=== PATIENT | female | born 1990 | race Caucasian/White ===

== ENCOUNTER 2021-04-29 10:10 | Emergency (ER) | payer OTHER ==
[~2021-04-29] VITALS: Ht 162.6 cm; Wt 77.1 kg
[2021-04-29] MEDS ORDERED: AMOXICILLIN500 MG PO (10:44)
== END 2021-04-29 15:04 | disposition home or self-care (01) ==
LOC: ED 10:10
DX: O99.353 Diseases of the nervous system complicating pregnancy, third trimester (principal); G43.809 Other migraine, not intractable, without status migrainosus; R29.810 Facial weakness; Z3A.37 37 weeks gestation of pregnancy
CPT/HCPCS: 80048; 85025; 96374; 96375; 99284-25; J0780; J1100; J1200; J2765; J3475; J7030

== ENCOUNTER 2021-05-09 00:04 | Inpatient (IN) | payer OTHER ==
[~2021-05-09 00:04] MED LIST: AMOXICILLIN500 MG PO
--- NOTE | 2021-05-09 00:30 | NUR ---
pt was swabbed for covid 19
--- NOTE | 2021-05-09 12:08 | PR ---
[facility] [address] [place], [place] [address] Signed Progress Notes IP Datetime Report Generated by CPRosie: 05/09/2021 12:08 PROGRESS NOTES: [id number] Impression: Normal Progression of Labor; Reassuring Heart Rate Procedures: Artificial ROM; Intrauterine Pressure Catheter Plan: Continue Present Management Other Plans: Discussed meconium and amnio infusion if indicated VITAL SIGNS: [id number] Vital Signs: Reviewed; Within Normal Limits VS Notable Details: Normal glucose values EXAM: [id number] Dilatation: 2.0 Effacement: 80 Station: -1 Contractions: None MEMBRANES: [id number] Pooling: Negative Comments: Pt seen and examined. Doing well. Comfortable w/ epidural. Noted occasional variable decelerations and ripe cervix. AROM performed after verbal consent and head noted to be well applied for moderate amount meconium stained fluid. IUPC placed w/out difficulty FETUS A: [id number] FHR Baseline: 130 Variability: Moderate 6-25bpm Accelerations: 15X15 Decelerations: None FHR Category: Category I Presentation: Vertex Comments on Fetus A: No evidence of metabolic acidosis FETUS B: [id number] Signing Physician: Shania Freire DO Copies: ~ *Electronically Signed* 05/09/21 1209 SHANIA FREIRE DO PATIENT NAME: AMOR HEDRICK PROGRESS NOTE DATE OF : 92 PHYSICIAN: SHANIA FREIRE DO RPT #: [id number] REPORT IS CONFIDENTIAL AND NOT TO BE RELEASED WITHOUT AUTHORIZATION
--- NOTE | 2021-05-09 12:18 | PR ---
[facility] [address] [place], [place] [address] Signed Progress Notes IP Datetime Report Generated by CPN: 05/09/2021 12:18 PROGRESS NOTES: [id number] Impression: Normal Progression of Labor; Reassuring Heart Rate Procedures: Scalp Electrode Plan: Continue Present Management Other Plans: Discussed meconium and amnio infusion if indicated VITAL SIGNS: [id number] Vital Signs: Reviewed; Within Normal Limits VS Notable Details: Normal glucose values EXAM: [id number] Dilatation: 2.0 Effacement: 80 Station: -1 Contractions: None MEMBRANES: [id number] Pooling: Negative Comments: Deep variable noted and resolved w/ position changes. Now moderate variability and reassuring FHT observed. FSE placed w/out difficulty. Discussed indication for amnioinfusion if needed. FETUS A: [id number] FHR Baseline: 130 Variability: Moderate 6-25bpm Accelerations: 15X15 Decelerations: None FHR Category: Category I Presentation: Vertex Comments on Fetus A: No evidence of metabolic acidosis FETUS B: [id number] Signing Physician: Shania Freire DO Copies: ~ *Electronically Signed* 05/09/21 1218 SHANIA FREIRE DO PATIENT NAME: AMOR HEDRICK PROGRESS NOTE DATE OF : 92 PHYSICIAN: SHANIA FREIRE DO RPT #: [id number] REPORT IS CONFIDENTIAL AND NOT TO BE RELEASED WITHOUT AUTHORIZATION
--- NOTE | 2021-05-09 14:33 | PR ---
[facility] [address] [facility] [place], [place] [address] Signed Progress Notes IP Datetime Report Generated by CPN: 05/09/2021 14:33 PROGRESS NOTES: [id number] Impression: Normal Progression of Labor Procedures: Sterile Vag Exam Plan: Continue Present Management Other Plans: Discussed meconium and amnio infusion if indicated VITAL SIGNS: [id number] Vital Signs: Reviewed; Within Normal Limits VS Notable Details: Normal glucose values EXAM: [id number] Dilatation: 2.0 Effacement: 80 Station: -1 Contractions: None MEMBRANES: [id number] Pooling: Negative Comments: Pt seen and examined. Doing well. Comfortable w/ contractions. CTXs adequate but slow cervical change. Discussed early labor and indications for pitocin if needed. Pt understands and agrees. Last glucose 106 FETUS A: [id number] FHR Baseline: 130 Variability: Moderate 6-25bpm Accelerations: 15X15 Decelerations: None FHR Category: Category I Presentation: Vertex Comments on Fetus A: No evidence of metabolic acidosis FETUS B: [id number] Signing Physician: Shania Freire DO Copies: ~ *Electronically Signed* 05/09/21 6507 SHANIA FREIRE DO PATIENT NAME: AMOR HEDRICK PROGRESS NOTE DATE OF : 92 PHYSICIAN: SHANIA FREIRE DO RPT #: [id number] REPORT IS CONFIDENTIAL AND NOT TO BE RELEASED WITHOUT AUTHORIZATION
--- NOTE | 2021-05-09 18:04 | PR ---
[facility] [address] [place], [place] [address] Signed Progress Notes IP Datetime Report Generated by CPN: 05/09/2021 18:04 PROGRESS NOTES: [id number] Impression: Reassuring Heart Rate Other Impressions: Slow progession of labor Procedures: Sterile Vag Exam Plan: Continue Present Management Other Plans: Continue maternal repositioning; Consider pitocin augmentation VITAL SIGNS: [id number] Vital Signs: Reviewed; Within Normal Limits VS Notable Details: Normal glucose values EXAM: L7871619 Dilatation: 4.0 Effacement: 85 Station: -1 Contractions: None MEMBRANES: [id number] Pooling: Negative Comments: Pt seen and examined. Doing well. Feeling discomfort w/ contractions. ROP position and caput noted on exam. Discussed slow progression of labor despite contraction pattern. Discussed options to help baby rotate to OA position. Reviewed adequate pelvis and EFW. Discussed possibility of pitocin augmentation. All questions answered FETUS A: [id number] FHR Baseline: 130 Variability: Moderate 6-25bpm Accelerations: 15X15 Decelerations: None FHR Category: Category I Presentation: Vertex Comments on Fetus A: No evidence of metabolic acidosis FETUS B: [id number] Signing Physician: Shania Freire DO Copies: ~ *Electronically Signed* 05/09/21 1802 SHANIA FREIRE DO PATIENT NAME: AMOR HEDRICK PROGRESS NOTE DATE OF : 92 PHYSICIAN: SHANIA FREIRE DO RPT #: [id number] REPORT IS CONFIDENTIAL AND NOT TO BE RELEASED WITHOUT AUTHORIZATION
--- NOTE | 2021-05-10 00:06 | PR ---
[facility] [address] [place], [place] [address] Signed Progress Notes IP Datetime Report Generated by ANGELO: 05/10/2021 00:05 PROGRESS NOTES: [id number] Impression: Normal Progression of Labor; Reassuring Heart Rate Other Impressions: Slow progession of labor Procedures: Sterile Vag Exam Plan: Continue Present Management; Anticipate Vaginal Delivery Other Plans: Continue maternal repositioning; Consider pitocin augmentation Informed Consent Obtain: Vaginal Delivery VITAL SIGNS: [id number] Vital Signs: Reviewed; Within Normal Limits VS Notable Details: Normal glucose values EXAM: [id number] Dilatation: 10.0 Effacement: 100 Station: 0 Contractions: None MEMBRANES: [id number] Pooling: Negative Comments: Pt seen and examined. Doing well. Comfortable w/ contractions w/ epidural. Complete +2 station. Reviewed adequate pelvis, EFW, and anticiapted course of 2nd stage of labor. All questions answered. FETUS A: [id number] FHR Baseline: 130 Variability: Moderate 6-25bpm Accelerations: 15X15 Decelerations: None FHR Category: Category I Presentation: Vertex Comments on Fetus A: No evidence of metabolic acidosis FETUS B: [id number] Signing Physician: Shania Freire DO Copies: ~ *Electronically Signed* 05/10/21 SHANIA ALEXANDER DO PATIENT NAME: AMOR HEDRICK PROGRESS NOTE DATE OF : 92 PHYSICIAN: SHANIA FREIRE DO RPT #: [id number] REPORT IS CONFIDENTIAL AND NOT TO BE RELEASED WITHOUT AUTHORIZATION
--- NOTE | 2021-05-10 02:13 | NUR ---
05/10/21 0212 Marilou Patrick 0202- PT ARRIVES TO [facility] ROOM #105 ALERT AND ORIENTED. PT REPORTS NO PAIN OR NAUSEA. RESP EVEN AND UNLABORED. OXYGEN SAT HIGH 90'S ON RA. PT'S 20G IV INFUSING WITH LR AND PITOCIN WNL TO THE RIGHT HAND. PT SAT UP SLIGHTLY IN BED. PT REPORTS NO DIZZINESS OR NAUSEA. 0212- PT SITTING UP A LITTLE MORE IN BED. PT REPORTS NO DIZZINESS OR NAUSEA WITH THIS. BABY TO CHEST. SIGNIFICANT OTHER AT THE BEDSIDE.
--- NOTE | 2021-05-10 08:11 | OR ---
[facility] [address] [facility] [place], [place] [address] Signed DATE OF OPERATION: 05/10/2021 SURGEON: Shania Freire DO PREOPERATIVE DIAGNOSES: 1. Intrauterine at 39 weeks' gestation. 2. Gestational diabetes mellitus, diet controlled. 3. Elton palsy. 4. Non-reassuring heart tracing. 5. Failed vacuum extraction. 6. Episiotomy POSTOPERATIVE DIAGNOSES: 1. Intrauterine at 39 weeks' gestation. 2. Gestational diabetes mellitus, diet controlled. 3. Elton palsy. 4. Non-reassuring heart tracing. 5. Failed vacuum extraction. 6. Episiotomy PROCEDURES PERFORMED: 1. Primary low transverse delivery following failed vacuum extraction 2. Repair of episiotomy. ESTIMATED BLOOD LOSS: 600 mL. VIDEOTAPE RECORDING ENGINEER: Hilda Linares MD COMPLICATIONS: None. INDICATIONS: Ms. Hedrick is a pleasant 30-year-old G1, P0, with intrauterine at 39 weeks' gestation. complicated by gestational diabetes that was well controlled with diet. Approximately one week ago, she developed Elton palsy and was started on oral steroids at which time, her diabetes became more difficult to control and insulin was started per [facility] recommendation. Diabetes was again well controlled with diet following completion of course of steroids. The patient was admitted for medical induction of Electronically Signed By: SHANIA FREIRE DO 05/10/21 0811 PATIENT NAME: AMOR HEDRICK OPERATIVE REPORT DATE OF : 92 REPORT #: [id number] PHYSICIAN: SHANIA FREIRE DO PCP: SHANIA FREIRE DO REPORT IS CONFIDENTIAL AND NOT TO BE RELEASED WITHOUT AUTHORIZATION [facility] [address] [place], [place] [address] Signed labor. She received cytotec for induction of labor and AROM was performed when cervix was ripe. Meconium stained fluid noted. She received a labor epidural and FHT was reassuring. The patient progressed to complete and pushed well with contractions. Sudden onsent bradycardia was noted and was nonresponsive to intrauterine resuscitation. Decision was made to proceed with vacuum extraction. Please see OB documentation regarding attempted operative vacuum delivery. After 3 pop-off's, decision was made to proceed with primary low transverse delivery. Risks, benefits, and alternatives were discussed in detail with the patient. The patient understands and wished to proceed with procedure. Pt was given a dose of terbutaline subq. TECHNIQUE: The patient was taken to the operating room where a time-out was performed to confirm correct patient and correct procedure. Epidural anesthesia was bolused and found to be adequate. A Porter catheter was reinserted. The patient received Ancef 2g IV as well as Azithromycin 500 mg IV. The patient was prepped and draped with a bump on the right hip. A Pfannenstiel skin incision was made through the skin down to the fascia. Fascia was nicked in the midline. The fascial incision was extended bilaterally using curved Orosco scissors. The fascia was grasped with Armen's, elevated, and the underlying rectus muscles divided sharply and bluntly. Rectus was divided in the midline and the peritoneum was entered bluntly. The peritoneal incision was extended bilaterally using blunt dissection. Gibran self-retractor was placed and hysterotomy was then performed using a surgical scalpel. Meconium-stained fluid was noted. Hysterotomy was extended bilaterally with blunt dissection. The surgeon's hand was then placed in the uterine cavity and the head was gently elevated into the maternal abdomen and delivered with the assistance of fundal pressure. No nuchal cord was noted. The baby was delivered in NATALIO position. The was vigorous and cried at delivery. Cord was doubly clamped and cut and the handed to the awaiting pediatric team for further care. Cord gases were obtained. Cord blood was obtained for routine analysis. The placenta was manually expressed intact with a centrally inserted 3-vessel cord. The uterine cavity was cleared of any remaining products of conception or clot. Pitocin was administered per protocol. An extension of the hysterotomy was noted on the left side of the hysterotomy towards the cervix. The apex of this was then secured with 0 Monocryl and hysterotomy extension was repaired in a running locked manner. Hysterotomy was then repaired using 0 Monocryl in 2 layers, the first being a running locked layer and the second being an imbricating layer in a vertical manner. Excellent hemostasis was appreciated. The patient did receive Pitocin immediately after delivery per protocol. Normal tubes and ovaries were identified. The pelvis was irrigated and a small amount of oozing along the peritoneal edge was made Electronically Signed By: SHANIA FREIRE DO 05/10/21 0811 PATIENT NAME: AMOR HEDRICK OPERATIVE REPORT DATE OF : 92 REPORT #: [id number] PHYSICIAN: SHANIA FREIRE DO PCP: SHANIA FREIRE DO REPORT IS CONFIDENTIAL AND NOT TO BE RELEASED WITHOUT AUTHORIZATION [address] [address] Signed hemostatic with Bovie electrocautery. Acel sheet was applied to the lower uterine segment after the Gibran self-retractor was removed. The peritoneum was reapproximated using 2-0 Vicryl in a running nonlocked manner. Rectus muscle was made hemostatic with judicious use of Bovie electrocautery and was irrigated. The rectus was then plicated in the midline using interrupted sutures of 0 Vicryl. The fascia was then reapproximated using 0 Vicryl in a running nonlocked manner. Subcu was made hemostatic with Bovie electrocautery and was irrigated and made hemostatic. Subcu was then reapproximated using 3-0 Vicryl in a running nonlocked manner. Skin was then reapproximated using surgical deondre. The uterus was Crede'd for scant amount of blood. Attention was then turned to episiotomy that was performed at the time of vacuum extraction. This was repaired in the standard fashion using 3-0 chromic in a running suture. Excellent cosmesis and hemostasis was appreciated. The patient then received a TAP block per Anesthesia in the operating room and was taken to PACU in good and stable condition with her . Sponge, needle, and instrument count was correct as anticipated, but due to the emergent nature of the procedure, preoperative count was unable to be performed. An x-ray was performed at the end of the procedure in the OR demonstrating no retained instrumentation. Dr. Linares was present and participated in all portions of the procedure. Shania Freire DO JDW/MODL /[id number] Copies: ~ Electronically Signed By: SHANIA FREIRE DO 05/10/21 0811 PATIENT NAME: AMOR HEDRICK OPERATIVE REPORT DATE OF : [birth year] REPORT #: [id number] PHYSICIAN: SHANIA FREIRE DO PCP: SHANIA FREIRE DO REPORT IS CONFIDENTIAL AND NOT TO BE RELEASED WITHOUT AUTHORIZATION
--- NOTE | 2021-05-11 11:28 | PR ---
[facility] [address] [place], [place] [address] Signed PP Progress Notes Datetime Report Generated by CPN: 05/11/2021 11:28 SUBJECTIVE: [id number] Pain: Within Normal Limits Nausea/Vomiting: Denies Flatus: Yes Bowel Movement: No Vital Signs: [id number] Vital Signs: Reviewed; Within Normal Limits Cardiovascular: Normal Respiratory: Normal Abdomen/Uterus: Normal Lochia: Normal Vulva/Perineum: Not Done Breasts: Not Done CVA Tenderness: Normal Extremities: Normal Incision: Normal Progress: Normal Exam Comments: Incision well healing w/ deondre in place. Fundus firm U-2 nontender IMPRESSION/PLAN/PROCEDURES: [id number] Impression: Normal Progression Other Impression: Spinal ROME Plan: Remove [place]; Discharge Progress Notes: Pt seen and examined. Doing well. Ambulating, voiding, and tolerating full diet. Pain and lochia minimal. well. No fevers, chills, or other concerts. Desires d/c home today. Reviewed d/c instruction in detail. all questions answered. Signing Physician: Shania Freire DO Copies: ~ *Electronically Signed* 05/11/21 1128 SHANIA FREIRE DO PATIENT NAME: AMOR HEDRICK PROGRESS NOTE DATE OF : 92 PHYSICIAN: SHANIA FREIRE #: [id number] REPORT IS CONFIDENTIAL AND NOT TO BE RELEASED WITHOUT AUTHORIZATION
== END 2021-05-11 12:04 | disposition home or self-care (01) | DRG 787 ==
LOC: FBC 00:04
PROVIDERS: ADMIT Obstetrics & Gynecology; ATTEND Obstetrics & Gynecology
PROC: 10D00Z1 Extraction of Products of Conception, Low, Open Approach (ICD-10-PCS; principal; 2021-05-10 00:33)
DX: O24.420 Gestational diabetes mellitus in childbirth, diet controlled (principal); O99.354 Diseases of the nervous system complicating childbirth; Z3A.39 39 weeks gestation of pregnancy; Z37.0 Single live birth; O76 Abnormality in fetal heart rate and rhythm complicating labor and delivery; G51.0 Bell's palsy; O66.5 Attempted application of vacuum extractor and forceps
CPT/HCPCS: 01961; 64488; 74018; 76942; 82803; 85027; A9270; J0456; J0690; J1100; J1650; J1885; J2001; J2405; J2590; J2795; J3010; J3105; J7121; U0003

== ENCOUNTER 2022-12-11 10:13 | Inpatient (IN) | payer OTHER ==
[~2022-12-11] VITALS: Ht 162.6 cm; Wt 75.8 kg
--- OUTSIDE RECORDS SUMMARY | ~2022-12-11 | XMS | Continuity of Care Document ---
Demographics + + + | Address | [address] | | | [place] [address] | + + + | Preferred Language | Unknown | + + + | Marital Status | | + + + | Taoist Affiliation | Unknown | + + + | Race | White | + + + | Ethnic Group | Unknown | + + + Author + + + | Author | [facility] | + + + | Organization | [facility] | + + + | Address | [address] | | | [place] [address] | + + + | Phone | | + + + Care Team Providers + + + + | Care Shop Tailor Apprentice Name | Role | Phone | + + + + Unavailable | Unavailable | + + + + Allergies and Intolerances + + + + + + | date | description | facility | reaction | severity | + + + + + + | (no date) | No Known | [facility] | (no reaction) | (no severity) | | | Allergies | | | | + + + + + + Encounters No information. Functional Status No information. Immunizations No information. Medications No information. Problems + + + + | date | description | facility | + + + + | 2021-07-26 15:15 | [facility] | [facility] | | | GENITAL ORGANS AND MENSTRU | | + + + + | 2021-07-26 15:15 | [facility] | [facility] | | | GENITAL ORGANS AND | | | | MENSTRUAL CYCLE | | + + + + | 2022-04-26 10:00 | ENCOUNTER FOR [facility] | [facility] | | | NORMAL , FIRST | | | | TRIMESTER | | + + + + | 2022-04-26 10:00 | ENCOUNTER FOR | [facility] | | | SCREENING FOR UN | | + + + + | 2022-08-06 10:50 | ENCOUNTER FOR [facility] OF | [facility] | | | NORMAL , SECOND | | | | TRIMESTER | | + + + + | 2022-10-29 10:56 | GESTATIONAL DIABETES IN | [facility] | | | , INSUL | | + + + + | 2022-10-29 10:56 | GESTATIONAL DIABETES IN | [facility] | | | , INSULIN | | | | CONTROLLED | | + + + + | 2022-10-29 11:00 | [facility]ETES IN | [facility] | | | , INSUL | | + + + + | 2022-10-31 08:56 | GESTATIONAL DIABETES | [facility] | | | MELLITUS IN , UNSP | | | | CONTROL | | + + + + | 2022-10-31 08:56 | 32 WEEKS GESTATION OF | [facility] | | | | | + + + + | 2022-11-05 08:49 | GESTATIONAL DIABETES IN | [facility] | | | , INSUL | | + + + + | 2022-11-05 08:49 | GESTATIONAL DIABETES IN | [facility] | | | , INSULIN | | | | CONTROLLED | | + + + + | 2022-11-05 09:00 | GESTATIONAL DIABETES IN | [facility] | | | , INSUL | | + + + + | 2022-11-07 08:52 | GESTATIONAL DIABETES | [facility] | | | MELLITUS IN , UNSP | | | | CONTROL | | + + + + | 2022-11-07 08:52 | 33 WEEKS GESTATION OF | [facility] | | | | | + + + + | 2022-11-12 09:42 | GESTATIONAL DIABETES IN | [facility] | | | , INSUL | | + + + + | 2022-11-12 09:42 | GESTATIONAL DIABETES IN | [facility] | | | , INSULIN | | | | CONTROLLED | | + + + + | 2022-11-12 09:42 | 34 WEEKS GESTATION OF | [facility] | | | | | + + + + | 2022-11-12 10:00 | GESTATIONAL DIABETES IN | [facility] | | | , INSUL | | + + + + | 2022-11-14 08:49 | GESTATIONAL DIABETES IN | [facility] | | | , INSULIN | | | | CONTROLLED | | + + + + | 2022-11-19 09:43 | GESTATIONAL DIABETES IN | [facility] | | | , INSUL | | + + + + | 2022-11-19 09:43 | GESTATIONAL DIABETES IN | [facility] | | | , INSULIN | | | | CONTROLLED | | + + + + | 2022-11-19 09:43 | 35 WEEKS GESTATION OF | [facility] | | | | | + + + + | 2022-11-19 10:00 | GESTATIONAL DIABETES IN | [facility] | | | , INSUL | | + + + + | 2022-11-21 08:51 | GESTATIONAL DIABETES | [facility] | | | MELLITUS IN , UNSP | | | | CONTROL | | + + + + | 2022-11-21 08:51 | 35 WEEKS GESTATION OF | [facility] | | | | | + + + + | 2022-11-26 09:43 | GESTATIONAL DIABETES IN | [facility] | | | , INSUL | | + + + + | 2022-11-26 09:43 | GESTATIONAL DIABETES IN | [facility] | | | , INSULIN | | | | CONTROLLED | | + + + + | 2022-11-26 10:00 | GESTATIONAL DIABETES IN | [facility] | | | , INSUL | | + + + + | 2022-11-28 08:49 | GESTATIONAL DIABETES | [facility] | | | MELLITUS IN , UNSP | | | | CONTROL | | + + + + | 2022-11-28 08:49 | 36 WEEKS GESTATION OF | [facility] | | | | | + + + + | 2022-12-03 09:48 | GESTATIONAL DIABETES IN | [facility] | | | , INSUL | | + + + + | 2022-12-03 09:48 | GESTATIONAL DIABETES IN | [facility] | | | , INSULIN | | | | CONTROLLED | | + + + + | 2022-12-03 09:48 | 37 WEEKS GESTATION OF | [facility] | | | | | + + + + | 2022-12-03 10:00 | GESTATIONAL DIABETES IN | [facility] | | | , INSUL | | + + + + | 2022-12-05 08:51 | GESTATIONAL DIABETES | [facility] | | | MELLITUS IN , UNSP | | | | CONTROL | | + + + + | 2022-12-05 08:51 | 37 WEEKS GESTATION OF | [facility] | | | | | + + + + | 2022-12-10 09:59 | GESTATIONAL DIABETES IN | [facility] | | | , INSUL | | + + + + | 2022-12-10 09:59 | GESTATIONAL DIABETES IN | [facility] | | | , INSULIN | | | | CONTROLLED | | + + + + | 2022-12-10 09:59 | 38 WEEKS GESTATION OF | [facility] | | | | | + + + + | 2022-12-10 10:00 | GESTATIONAL DIABETES IN | [facility] | | | , INSUL | | + + + + | 2022-12-13 07:30 | GESTATIONAL DIABETES IN | [facility] | | | , INSUL | | + + + + | 2022-12-13 07:30 | MATERNAL CARE FOR UNSP | [facility] | | | TYPE SCAR FROM RI | | + + + + Procedures No information. Results/Labs No information. Social History No information. Vital Signs No information."
[2022-12-13 05:48] LABS: HEMOGLOBIN 14.2 g/dL (12.0-18.0); MCH 30.3 (27-36); MCHC 33.8 g/dl (30-36); MCV 89.6 fl (81-99); RBC 4.69 M/ul (4.3-5.7); RDW 13.1 (10.5-15.0)
[2022-12-13 06:39] VITALS: BP 113/67
[2022-12-13 06:39] LABS: ABO O
[2022-12-13 06:40] LABS: ANTIBODY SCREEN NEGATIVE; RH POSITIVE
[2022-12-13 07:02] LABS: AMPHETAMINES, UR NEGATIVE (NEGATIVE); BARBITURATES, UR NEGATIVE (NEGATIVE); BENZODIAZEPINES, UR NEGATIVE (NEGATIVE); BUPRENORPHINE,UR NEGATIVE (NEGATIVE); COCAINE, UR NEGATIVE (NEGATIVE); MARIJUANA (THC), UR NEGATIVE (NEGATIVE); MDMA, UR NEGATIVE (NEGATIVE); METHADONE, UR NEGATIVE (NEGATIVE); METHAMPHETAMINE, UR NEGATIVE (NEGATIVE); OPIATES, UR NEGATIVE (NEGATIVE); OXYCODONE, UR NEGATIVE (NEGATIVE); PHENCYCLIDINE, UR NEGATIVE (NEGATIVE); TRICYCLIC ANTIDEPRESSANT, UR NEGATIVE (NEGATIVE)
--- NOTE | 2022-12-13 08:50 | NUR ---
12/13/22 0850 DiannaTammy Darshan 0824- PT ARRIVES TO ROOM 104, ALERT, SUPINE POSITION. LR WITH 30 UNITS OF PITOCIN RUNNING TO LH 18 G IV, WNL. PT ANSWERING QUESTIONS. UNABLE TO MOVE LEGS, SPINAL T-4. PT EDUCATED ON SPINAL RESOLUTION. SANTY PAD IN PLACE, NO DRAINAGE. ABD INCISION, DRESSING IN PLACE. 0830- NO CHANGES, PT DENIES PAIN AND NAUSEA. JOSUE RN AT BEDSIDE, ASSISTING WITH BREAST FEEDING. PT C/O BEING HOT, COOL WASH CLOTH PLACED TO HER FOREHEAD. PT VITAL SIGNS STABLE, HEAD OF BED ELEVATED. EDUCATED ON PUTTING HEAD UP SLOWLY. MOBLEY CATHETER DRAINGING CLEAR YELLOW URINE. 0845- PT CONTINUES TO FEED BABY AT BREAST. SEMI TAY POSITION. NO CHANGES. PT HAS NO COMPLAINTS.
[2022-12-13 08:58] VITALS: BP 108/56
[2022-12-14 05:35] LABS: HEMATOCRIT 41.2 % (35.0-50.0); HEMOGLOBIN 13.7 g/dL (12.0-18.0); MCH 30.1 (27-36); MCHC 33.2 g/dl (30-36); MCV 90.7 fl (81-99); RBC 4.55 M/ul (4.3-5.7); RDW 13.3 (10.5-15.0)
--- NOTE | 2022-12-14 10:51 | PR ---
[facility] [address] [place], [place] [address] Signed PP Progress Notes Datetime Report Generated by CPN: 12/14/2022 10:50 SUBJECTIVE: [id number] Pain: Within Normal Limits Nausea/Vomiting: Denies Flatus: Yes Bowel Movement: No Vital Signs: [id number] Vital Signs: Reviewed; Within Normal Limits EXAM: Met Cardiovascular: Normal Respiratory: Normal Abdomen/Uterus: Normal Lochia: Normal Vulva/Perineum: Not Done CVA Tenderness: Normal Extremities: Normal Progress: Normal Exam Comments: Fundus firm U-2 nontender. Pt and incision exam deferred IMPRESSION/PLAN/PROCEDURES: [id number] Impression: Normal Progression Plan: Continue Present Management Progress Notes: Pt seen and examined. Doing well. Ambulating, voiding, and tolerating full diet. Pain and lochia minimal. Did have some difficulty w/ initial void after yeung removal, but now voiding well. C/O "welts" at spinal anesthesia site and pt requested hydrocortizone. No fevers or other concerns. Anticipate d/c home tomorrow. Signing Physician: Shania Freire DO Copies: ~ *Electronically Signed* 12/14/22 8303 SHANIA FREIRE (CHLOE) DO PATIENT NAME: AMOR GLASS PROGRESS NOTE DATE OF : 89 PHYSICIAN: SHANIA FREIRE) DO RPT #: [id number] REPORT IS CONFIDENTIAL AND NOT TO BE RELEASED WITHOUT AUTHORIZATION
--- NOTE | 2022-12-14 10:52 | PR ---
[facility] [address] [place], [place] [address] Signed PP Progress Notes Datetime Report Generated by CPN: 12/14/2022 10:51 SUBJECTIVE: [id number] Pain: Within Normal Limits Nausea/Vomiting: Denies Flatus: Yes Bowel Movement: No Vital Signs: [id number] Vital Signs: Reviewed; Within Normal Limits EXAM: Met Cardiovascular: Normal Respiratory: Normal Abdomen/Uterus: Normal Lochia: Normal Vulva/Perineum: Not Done CVA Tenderness: Normal Extremities: Normal Progress: Normal Exam Comments: Fundus firm U-2 nontender. Pt and incision exam deferred IMPRESSION/PLAN/PROCEDURES: [id number] Impression: Normal Progression Plan: Continue Present Management Progress Notes: Pt seen and examined. Doing well. Ambulating, voiding, and tolerating full diet. Pain and lochia minimal. Did have some difficulty w/ initial void after yeung removal, but now voiding well. C/O "welts" at spinal anesthesia site and pt requested hydrocortizone. No fevers or other concerns. Anticipate d/c home tomorrow. Signing Physician: Shania Freire DO Copies: ~ *Electronically Signed* 12/14/22 2531 SHANIA FREIRE (CHLOE) DO PATIENT NAME: AMOR GLASS PROGRESS NOTE DATE OF : 89 PHYSICIAN: SHANIA FREIRE) DO RPT #: [id number] REPORT IS CONFIDENTIAL AND NOT TO BE RELEASED WITHOUT AUTHORIZATION
--- NOTE | 2022-12-15 08:56 | PR ---
[facility] [address] [facility] [place], [place] [address] Signed PP Progress Notes Datetime Report Generated by CPN: 12/15/2022 08:55 SUBJECTIVE: [id number] Pain: Within Normal Limits Nausea/Vomiting: Denies Flatus: Yes Bowel Movement: No Vital Signs: [id number] Vital Signs: Reviewed; Within Normal Limits EXAM: Met Cardiovascular: Normal Respiratory: Normal Abdomen/Uterus: Normal Lochia: Normal Vulva/Perineum: Not Done Breasts: Not Done CVA Tenderness: Normal Extremities: Normal Incision: Normal Progress: Normal Exam Comments: Fundus firm U-2 nontender IMPRESSION/PLAN/PROCEDURES: [id number] Impression: Normal Progression Plan: Remove Leeann; Discharge Progress Notes: Pt seen and examined. Doing well. Ambulating, voiding, and tolerating full diet. Pain and lochia minimal. well. Incision healing well. No fevers/chills or other concerns. Desires d/c home. Reviewed d/c instructions in details. All questions answered. Undecided on pp contraception Signing Physician: Shania Freire DO Copies: ~ *Electronically Signed* 12/15/22 0855 SHANIA FREIRE (CHLOE) DO PATIENT NAME: AMOR GLASS PROGRESS NOTE DATE OF : 89 PHYSICIAN: SHANIA FREIRE) DO RPT #: [id number] REPORT IS CONFIDENTIAL AND NOT TO BE RELEASED WITHOUT AUTHORIZATION
== END 2022-12-15 10:47 | disposition home or self-care (01) | DRG 788 ==
LOC: FBC 12-13 05:07
PROVIDERS: ADMIT Obstetrics & Gynecology; ATTEND Obstetrics & Gynecology
PROC: 10D00Z1 Extraction of Products of Conception, Low, Open Approach (ICD-10-PCS; principal; 2022-12-13 07:30)
DX: O24.424 Gestational diabetes mellitus in childbirth, insulin controlled (principal); Z3A.38 38 weeks gestation of pregnancy; Z37.0 Single live birth; O69.1XX0 Labor and delivery complicated by cord around neck, with compression, not applicable or unspecified; O34.211 Maternal care for low transverse scar from previous cesarean delivery; Z91.013 Allergy to seafood; Z91.030 Bee allergy status
CPT/HCPCS: 01961; 36415; 85027; 86850; 86900; 86901; A9270; J0690; J1885; J2274; J2300; J2405; J2590; J2765; J2795; J7121

== ENCOUNTER 2024-04-14 09:59 | Emergency (ER) | payer OTHER ==
[~2024-04-14] VITALS: Ht 152.4 cm; Wt 74.1 kg
[2024-04-14] MEDS ORDERED: PRENATAL FORMU1 EAC3 PO (10:10)
[2024-04-14 10:43] LABS: BILIRUBIN, URINE NEGATIVE (negative); BLOOD/HGB, URINE LARGE (Negative); KETONE, URINE SMALL (Negative); LEUK ESTERASE, URINE NEGATIVE (negative); NITRITE, URINE NEGATIVE (negative); PH, URINE 7.5 (5-7)
[2024-04-14 10:51] LABS: BACTERIA, URINE 1+ /hpf (negative); CASTS, URINE NONE SEEN \\lpf; COLLECTION TYPE, URINE CLEAN CATCH; CRYSTALS, URINE NONE SEEN (0-1+); EPITHELIAL CELLS, URINE SQUAMOUS 2+ /lpf (0-1+); REFLEX CULTURE, URINE No (No)
[2024-04-14 11:08] LABS: BASOPHILS 0.4 % (0-2); EOSINOPHILS 0.6 % (0-6); HEMATOCRIT 42.2 % (35.0-50.0); HEMOGLOBIN 14.5 g/dL (12.0-18.0); LYMPHOCYTES 28.6 % (24-44); MCH 31.2 (27-36); MCHC 34.5 g/dl (30-36); MCV 90.5 fl (81-99); MONOCYTES 6.8 % (0-12); NEUTROPHILS 63.6 % (39-80); PLATELET COUNT 209 K/uL (140-440); RBC 4.67 M/ul (4.3-5.7); RDW 12.6 (10.5-15.0)
[2024-04-14 11:43] LABS: ALBUMIN 3.7 g/dL (3.4-5.0); ALBUMIN/GLOBULIN RATIO 0.97 (1.1-2.4); ANION GAP 14.8 (7-21); BILIRUBIN, TOTAL 0.4 ng/dL (0.2-1.0); BUN/CREATININE RATIO 12.85 (6.0-28.6); CALCIUM 8.8 mg/dL (8.5-10.1); CREATININE, SERUM 0.7 mg/dL (0.55-1.02); POTASSIUM 3.8 mmol/L (3.5-5.1); PROTEIN, TOTAL 7.5 g/dL (6.4-8.2)
[2024-04-14 12:40] VITALS: BP 128/78
== END 2024-04-14 12:41 | disposition home or self-care (01) ==
LOC: ED 09:59
PROVIDERS: Emergency Medicine
DX: O20.0 Threatened abortion (principal); Z3A.01 Less than 8 weeks gestation of pregnancy; Z91.038 Other insect allergy status; Z91.013 Allergy to seafood; Z79.899 Other long term (current) drug therapy
CPT/HCPCS: 36415; 76801; 76817; 80053; 81001; 84702; 85025; 99284-25

== ENCOUNTER 2025-02-22 16:44 | Inpatient (IN) | payer OTHER ==
[~2025-02-22] VITALS: Ht 162.6 cm; Wt 78.0 kg
[~2025-02-22 16:44] MED LIST changes: +PRENATAL FORMU1 EAC3 PO
[2025-02-23] MEDS ORDERED: LACTATED RINGER'S 1,000 ML IV PRN (05:45)
[2025-02-23 05:59] LABS: MCH 29.7 PG (25.6-32.2); MCHC 34.3 g/dL (32.2-35.5); MCV 86.5 fL (79.4-94.8); RBC 4.82 M/uL (3.93-5.22)
[2025-02-23 06:03] VITALS: BP 128/75
[2025-02-23 06:22] LABS: AMPHETAMINES, URINE NEGATIVE (NEGATIVE); BARBITURATES, URINE NEGATIVE (NEGATIVE); BENZODIAZEPINE, URINE NEGATIVE (NEGATIVE); CANNABINOID, URINE NEGATIVE (NEGATIVE); COCAINE, URINE NEGATIVE (NEGATIVE); ECSTASY, URINE NEGATIVE (NEGATIVE); FENTANYL, URINE NEGATIVE (NEGATIVE); METHADONE, URINE NEGATIVE (NEGATIVE); OPIATES, URINE NEGATIVE (NEGATIVE); OXYCODONE, URINE NEGATIVE (NEGATIVE); PHENCYCLIDINE, URINE NEGATIVE (NEGATIVE)
[2025-02-23 06:36] LABS: ABO O
[2025-02-23 06:37] LABS: ANTIBODY SCREEN NEGATIVE; RH POSITIVE
[2025-02-23] MEDS ORDERED: CEFAZOLIN SODIUM 2 GM in SODIUM CHLORIDE 0.9% 100 ML IV SCH (07:00)
[2025-02-23] MEDS ORDERED: BUPIVACAINE 0.75% IN DEXTROSE 2 ML AMP ONE (07:19)
[2025-02-23] MEDS ORDERED: LIDOCAINE HCL 2% 5 ML SDV ONE (07:19)
[2025-02-23] MEDS ORDERED: SODIUM CHLORIDE 0.9% 40 ML IV ONE (07:19)
[2025-02-23] MEDS ORDERED: Ropivacaine HCl 0.5% 30 ML VIAL ONE (07:19)
[2025-02-23] MEDS ORDERED: DEXAMETHASONE SOD PHOS 4 MG/ML VIAL ONE ×2 (07:20→08:13)
[2025-02-23] MEDS ORDERED: PHENYLEPHRINE HCL IN 0.9% NACL 1 MG/10 ML SYR ONE (07:20)
[2025-02-23] MEDS ORDERED: OXYTOCIN/0.9 % SODIUM CHLORIDE 500 ML IV ONE (07:26)
[2025-02-23] MEDS ORDERED: ACETAMINOPHEN 1,000 MG/100 ML VIAL ONE (07:44)
[2025-02-23] MEDS ORDERED: SODIUM CHLORIDE 0.9% 20 ML IV ONE ×2 (07:54→08:19)
[2025-02-23] MEDS ORDERED: OXYTOCIN 10 UNITS/ML VIAL ONE (07:54)
--- NOTE | 2025-02-23 09:13 | NUR ---
02/23/25 0913 Sheets,Huong 0892 PT ARRIVED TO PACU ON RA AND VSS. PT DENIES CONCERNS, NO PAIN OR NAUSEA. PLAN OF CARE DISCUSSED. 0909 BABY TO CHEST AND HOB INCREASED SLIGHTLY.
[2025-02-23 09:21] VITALS: BP 106/64
[2025-02-23] MEDS ORDERED: PROCHLORPERAZINE EDISYLATE 10 MG/2 ML VIAL IV PRN (09:30)
[2025-02-23] MEDS ORDERED: OXYCODONE HCL 5 MG TAB PO PRN (09:30)
[2025-02-23] MEDS ORDERED: OXYCODONE/APAP 5/325 TAB PO PRN (09:30)
[2025-02-23] MEDS ORDERED: HYDROmorphone HCL 1 MG/ML SYR IV PRN (09:30)
[2025-02-23] MEDS ORDERED: PROMETHAZINE HCL 25 MG SUPP PR PRN (09:30)
[2025-02-23] MEDS ORDERED: METOCLOPRAMIDE HCL 10 MG/2 ML SDV IV PRN (09:30)
[2025-02-23] MEDS ORDERED: MORPHINE SULFATE 4 MG/ML VIAL IV PRN (09:30)
[2025-02-23] MEDS ORDERED: IBLOOD GLUCOSE TEST STRIP 1 EA TEST VI PRN (09:30)
[2025-02-23] MEDS ORDERED: LIDOCAINE 2% VISCOUS 6 ML SYR TOP ONE (09:30)
[2025-02-23] MEDS ORDERED: OXYTOCIN/0.9 % SODIUM CHLORIDE 500 ML IV SCH (09:30)
[2025-02-23] MEDS ORDERED: PROMETHAZINE HCL 25 MG TAB PO PRN (09:30)
[2025-02-23] MEDS ORDERED: NALOXONE HCL 0.4 MG SYR IV PRN ×2 (09:30)
[2025-02-23] MEDS ORDERED: KETOROLAC TROMETHAMINE 30 MG/ML VIAL IV PRN (09:30)
[2025-02-23] MEDS ORDERED: LACTATED RINGER'S 1,000 ML IV SCH (09:33)
[2025-02-23] MEDS ORDERED: SIMETHICONE 80 MG CHEW PO SCH (11:00)
[2025-02-23] MEDS ORDERED: ACETAMINOPHEN 325 MG TAB PO PRN (11:15)
[2025-02-23] MEDS ORDERED: KETOROLAC TROMETHAMINE 30 MG/ML VIAL IV SCH (14:00)
[2025-02-23] MEDS ORDERED: SENNOSIDES/DOCUSATE 1 EA TAB PO SCH (21:00)
[2025-02-24] MEDS ORDERED: LACTATED RINGER'S 1,000 ML IV SCH (05:00)
[2025-02-24 05:16] LABS: MCH 30.0 PG (25.6-32.2); MCHC 34.2 g/dL (32.2-35.5); MCV 87.7 fL (79.4-94.8); RBC 4.7 M/uL (3.93-5.22)
[2025-02-24] MEDS ORDERED: IBUPROFEN 600 MG TAB PO SCH (14:00)
[2025-02-24] MEDS ORDERED: HYDROCORTISONE 1% 30 GM TUBE TOP PRN (17:00)
== END 2025-02-25 11:40 | disposition home or self-care (01) | DRG 785 ==
LOC: FBC 02-23 05:10
PROVIDERS: ADMIT Obstetrics & Gynecology; ATTEND Obstetrics & Gynecology
PROC: 0UT70ZZ Resection of Bilateral Fallopian Tubes, Open Approach (ICD-10-PCS; 2025-02-23)
PROC: 10907ZC Drainage of Amniotic Fluid, Therapeutic from Products of Conception, Via Natural or Artificial Opening (ICD-10-PCS; 2025-02-23)
PROC: 3E03329 Introduction of Other Anti-infective into Peripheral Vein, Percutaneous Approach (ICD-10-PCS; 2025-02-23)
PROC: 10D00Z1 Extraction of Products of Conception, Low, Open Approach (ICD-10-PCS; principal; 2025-02-23 07:45)
DX: O34.211 Maternal care for low transverse scar from previous cesarean delivery (principal); Z3A.39 39 weeks gestation of pregnancy; Z37.0 Single live birth; O77.0 Labor and delivery complicated by meconium in amniotic fluid; Z30.2 Encounter for sterilization; Z98.890 Other specified postprocedural states; Z91.048 Other nonmedicinal substance allergy status; Z91.013 Allergy to seafood; Z91.030 Bee allergy status; Z79.899 Other long term (current) drug therapy; Z87.19 Personal history of other diseases of the digestive system; Z98.51 Tubal ligation status
CPT/HCPCS: 01961; 36415; 80307; 85027; 86850; 86900; 86901; 88302; A9270; J0131; J0165; J0688; J1100; J1885; J2003; J2405; J2590; J2795; J7121